=== PATIENT | female | born 1975 | race Caucasian/White ===

== ENCOUNTER 2018-10-03 16:48 | Emergency (ER) | payer OTHER ==
[~2018-10-03] VITALS: Ht 162.6 cm; Wt 83.5 kg
[2018-10-03 17:12] VITALS: BP 149/92
[2018-10-03] MEDS ORDERED: ACETAMINOPHEN 325 MG TAB PO ONE (17:20)
--- NOTE | 2018-10-03 17:20 | NUR ---
Note undone in EDM - 10/03/18 at 1738 by CHAI C/O SEVERE HEADACHE, N/V/D SINCE LAST NIGHT, NO MED HX. SKIN IS PINK/WARM/DRY; AAOX4 WITH EVEN AND STEADY GAIT; LUNGS CLEAR BL; HR EVEN AND REGULAR; PT DENIES ANY FEVER, CP, SOB, OR COUGH AT THIS TIME; PATIENT STATES PAIN OF 10/10 AT THIS TIME; VSS; PATIENT POSITIONED FOR COMFORT; HOB ELEVATED; BEDRAILS UP X2; BED DOWN. ER MADE AWARE OF PT STATUS.
--- NOTE | 2018-10-03 17:42 | NUR ---
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 PT REPORTED SHE HAS BLISTER AT HER PRIVATE AREA. PATIENT STATES PAIN OF 8/10 AT THIS TIME;PATIENT POSITIONED FOR COMFORT; HOB ELEVATED; BEDRAILS UP X2; BED DOWN. ER MD MADE AWARE OF PT STATUS.
[2018-10-03 17:51] LABS: APPEARANCE,URINE CLEAR (CLEAR); BILIRUBIN,URINE NEGATIVE (NEGATIVE); BLOOD, URINE 3+ (NEGATIVE); COLOR,URINE YELLOW (YELLOW); LEUKOCYTE ESTERASE ,URINE NEGATIVE (NEGATIVE); NITRITE, URINE NEGATIVE (NEGATIVE); UGLUCOSE 3+ (NEGATIVE)
[2018-10-03 18:11] LABS: RBC,URINE >20 (MANY) /HPF (0-5); WBC,URINE 0-5 /HPF (0-5)
[2018-10-03 18:12] LABS: YEAST,URINE Many /HPF (None Seen)
[2018-10-03 18:55] VITALS: BP 125/78
--- NOTE | 2018-10-03 18:55 | NUR ---
Patient discharged with v/s stable. Written and verbal after care instructions given and explained. Patient alert, oriented and verbalized understanding of instructions. Ambulatory with steady gait. All questions addressed prior to discharge. ID band removed. Patient advised to follow up with PMD. Rx of PYRIDIUM & DOXYCYCLINE given. Patient educated on indication of medication including possible reaction and side effects. Opportunity to ask questions provided and answered.
== END 2018-10-03 18:55 | disposition home or self-care (01) ==
LOC: MED 16:48
DX: L73.9 Follicular disorder, unspecified (principal); R30.0 Dysuria; R30.9 Painful micturition, unspecified; R31.9 Hematuria, unspecified
CPT/HCPCS: 81001; 81025; 82948; 87086; 87186; 99283

== ENCOUNTER 2018-11-17 18:54 | Emergency (ER) | payer OTHER ==
[~2018-11-17] VITALS: Ht 165.1 cm; Wt 83.5 kg
[2018-11-17 18:59] VITALS: BP 159/87
[2018-11-17] MEDS ORDERED: NITROGLYCERIN 0.4 MG TAB SL ONE (19:35)
[2018-11-17] MEDS ORDERED: ASPIRIN 81 MG TAB.CHEW PO ONE (19:35)
[2018-11-17 19:56] LABS: BASOPHILS % (AUTO) 0.2 % (0.0-2.0); EOSINOPHILS % (AUTO) 0.6 % (0.0-4.0); HEMOGLOBIN 14.1 g/dL (12.0-16.0); LYMPHOCYTES # (AUTO) 1.6 K/uL (2.5-16.5); LYMPHOCYTES % (AUTO) 18.7 % (20.5-51.1); MEAN CORPUSCULAR HEMOGLOBIN 30 pg (27-31); MEAN CORPUSCULAR HGB CONC 34 g/dL (33-37); MEAN CORPUSCULAR VOLUME 88.9 fL (80-94); MONOCYTES # (AUTO) 0.5 K/uL (0.8-1.0); NEUTROPHILS # (AUTO) 6.5 K/uL (1.8-7.7); NEUTROPHILS % (AUTO) 74.5 % (42.2-75.2); PLATELET COUNT (AUTO) 225 K/uL (140-450); RED BLOOD CELL COUNT(AUTO) 4.73 MIL/uL (4.20-5.40); RED CELL DISTRIBUTION WIDTH 13.1 % (11.6-13.7); WHITE BLOOD COUNT (AUTO) 8.7 K/uL (4.8-10.8)
[2018-11-17 20:16] LABS: CARBON DIOXIDE 27.9 mmol/L (21-32); CREATININE 0.7 mg/dL (0.6-1.3); POTASSIUM 3.9 mmol/L (3.5-5.1)
[2018-11-17] MEDS ORDERED: KETOROLAC 15 MG/ML VIAL IVP ONE (21:50)
[2018-11-17 22:35] VITALS: BP 120/74
== END 2018-11-17 22:35 | disposition home or self-care (01) ==
LOC: MED 18:54
DX: R07.9 Chest pain, unspecified (principal); E11.9 Type 2 diabetes mellitus without complications; Z85.9 Personal history of malignant neoplasm, unspecified
CPT/HCPCS: 36415; 71045; 80048; 84484; 85025; 93005; 96374; 99284; J1885; Q0092

== ENCOUNTER 2019-02-17 16:42 | Emergency (ER) | payer OTHER ==
[~2019-02-17] VITALS: Ht 157.5 cm; Wt 78.5 kg
[2019-02-17 16:48] VITALS: BP 144/80
--- NOTE | 2019-02-17 16:52 | NUR ---
Patient ambulated to bed 4. RN evaluating patient at bedside.
[2019-02-17] MEDS ORDERED: FAMOTIDINE 20 MG TAB PO ONE (17:05)
[2019-02-17] MEDS ORDERED: KETOROLAC 60 MG/2 ML VIAL IM ONE (17:05)
--- NOTE | 2019-02-17 17:07 | NUR ---
instructional technology facilitator at bedside.
--- NOTE | 2019-02-17 17:09 | NUR ---
xray at bedside.
--- NOTE | 2019-02-17 17:11 | NUR ---
labs at bedside.
--- NOTE | 2019-02-17 17:17 | NUR ---
dominga emt at bedside for ekg
--- NOTE | 2019-02-17 17:17 | NUR ---
toradol and pepcid administered.
[2019-02-17 17:23] LABS: BASOPHILS % (AUTO) 0.3 % (0.0-2.0); EOSINOPHILS % (AUTO) 0.2 % (0.0-4.0); HEMATOCRIT 43.8 % (36-48); HEMOGLOBIN 14.2 g/dL (12.0-16.0); LYMPHOCYTES # (AUTO) 1.8 K/uL (2.5-16.5); LYMPHOCYTES % (AUTO) 20.2 % (20.5-51.1); MEAN CORPUSCULAR HEMOGLOBIN 29 pg (27-31); MEAN CORPUSCULAR HGB CONC 33 g/dL (33-37); MEAN CORPUSCULAR VOLUME 89.6 fL (80-94); MONOCYTES # (AUTO) 0.5 K/uL (0.8-1.0); MONOCYTES % (AUTO) 5.4 % (1.7-9.3); NEUTROPHILS # (AUTO) 6.6 K/uL (1.8-7.7); NEUTROPHILS % (AUTO) 73.9 % (42.2-75.2); PLATELET COUNT (AUTO) 251 K/uL (140-450); RED BLOOD CELL COUNT(AUTO) 4.89 MIL/uL (4.20-5.40); RED CELL DISTRIBUTION WIDTH 13.4 % (11.6-13.7); WHITE BLOOD COUNT (AUTO) 8.9 K/uL (4.8-10.8)
--- NOTE | 2019-02-17 17:30 | NUR ---
PT C/O CONTINOUS LEFT SIDED CHEST PAIN RADIATING TO BILATERAL ARMS, NECK AND BACK FOR 4 DAYS. PAIN 6/10 . PT DENIES N/V/ DIARRHEA OR ABDOMINAL PAIN ADMITS TO MILD SOB . LUNGS CLEAR BILATERALLY SYMMETRICAL CHEST EXPANSION , SHE WAS REFERRED FROM URGENT CARE EKG SHOWED SINUS TACHY.PT ALERT ,AWAKE ,AMBULATORY WITH STEADY GAIT. PMH DM ,HTN. PT STATES SHE RARELY TAKES HER MEDS.
[2019-02-17 17:42] LABS: ANION GAP 18.1 (8-16); CARBON DIOXIDE 24.5 mmol/L (21-32); CREATININE 0.7 mg/dL (0.6-1.3); POTASSIUM 3.6 mmol/L (3.5-5.1)
[2019-02-17 17:48] LABS: ALBUMIN 3.8 g/dL (3.4-5.0); TOTAL BILIRUBIN 0.6 mg/dL (0.0-1.0)
--- NOTE | 2019-02-17 17:58 | NUR ---
ACCU CHECK 111
--- NOTE | 2019-02-17 18:09 | NUR ---
V/S STABLE. PT AWAKE ,ALERT. PAIN 5/10 NADRS
--- NOTE | 2019-02-17 19:10 | NUR ---
RECIEVED REPORT FROM GABBY GONZALES. PATIENT SITTING UP IN BED. NO NEW NEEDS STATED AT THIS TIME.
[2019-02-17 19:43] VITALS: BP 129/75
--- NOTE | 2019-02-17 19:44 | NUR ---
Patient discharged with v/s stable. Written and verbal after care instructions given and explained. Patient alert, oriented and verbalized understanding of instructions. Ambulatory with steady gait. All questions addressed prior to discharge. ID band removed. Patient advised to follow up with PMD. Rx of Acetaminophen, and omeprazole given. Patient educated on indication of medication including possible reaction and side effects. Opportunity to ask questions provided and answered.
== END 2019-02-17 19:49 | disposition home or self-care (01) ==
LOC: MED 16:42
DX: R07.89 Other chest pain (principal); I10 Essential (primary) hypertension; E11.9 Type 2 diabetes mellitus without complications; Z98.890 Other specified postprocedural states
CPT/HCPCS: 36415; 71045; 80053; 81025; 82948; 83690; 84484; 85025; 93005; 96372; 99284; J1885; Q0092